=== PATIENT | male | born 1970 | race African-American/Black ===

== ENCOUNTER 2021-01-16 08:02 | Emergency (ER) | payer OTHER, SELFPAY ==
[2021-01-16 08:32] VITALS: BP 170/102; PULSE 74; RESP 16; TEMP 36.4; O2SAT 97; BMI 33.0
[2021-01-16 08:35] VITALS: BP 164/101
--- NOTE | 2021-01-16 08:43 | ED.BACK ---
HPI - Back Pain/Injury General Chief Complaint: Back Pain/Injury Stated Complaint: back pain Time Seen by Provider: 01/16/21 08:37 Source: patient Mode of arrival: ambulatory Limitations: no limitations History of Present Illness HPI Narrative: 50 y/o male with no significant medical history presents to the ER with 1 week of right upper back and shoulder pain. 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 His pain is located in his upper back and it feels like his muscles are all tensed up. He has been taking Advil with some brief improvement. She denies any chest pain, SOB, abd pain, N/V/D. No known specific injury or trauma. MD elicited complaint: back pain Onset (ago): week(s) (1) Timing: constant Severity: moderate Similar Symptoms Previously: No Quality: aching and spasming Location: right upper back Radiation: none Exacerbating factors: movement and deep breaths Relieving factors: none Associated symptoms: denies other symptoms Treatments prior to arrival: NSAIDS Work related injury: Yes Related Data Previous Rx's Medication Instructions Recorded cyclobenzaprine 10 mg tablet 10 mg PO TID PRN #14 tab 01/16/21 ibuprofen 600 mg tablet 600 mg PO Q8H PRN #20 tab NS 01/16/21 lidocaine 5 % topical patch 1 patch TOPICAL DAILY #15 ea 01/16/21 (Lidoderm) Allergies Allergy/AdvReac Type Severity Reaction Status Date / Time No Known Allergies Allergy Unverified 01/06/20 15:54 Review of Systems Review of Systems: Constitutional: No Fever, No Chills ENT/Mouth: No sore throat Cardiovascular: No Chest Pain, No SOB Respiratory: No Cough, No Sputum Gastrointestinal: No Nausea, No Vomiting, No abdominal Pain Musculoskeletal: + joint pain, + Myalgias Skin: No Skin Lesions, No rash Neuro: No Weakness, No Numbness Heme/Lymph: No Bruising, No Lymphadenopathy PMFSH Past Medical History Medical History (Updated 01/16/21 @ 08:45 by KRISTYN Aaron) No known health problems Social History Social History Advance Directives: No Advance Directives Information Provided: No Physical Exam Vital Signs: Vital Signs: Last Vital Signs Temp 97.6 F 01/16/21 08:32 Pulse 74 01/16/21 08:32 Resp 16 01/16/21 08:32 BP 164/101 H 01/16/21 08:35 Pulse Ox 97 01/16/21 08:32 Body Mass Index 33.0 Appearance: Alert. Oriented X3. No acute distress. HEENT: normal inspection CVS: Normal heart rate and rhythm. Pulses normal. Respiratory: No respiratory distress. Lungs CTAB Abd: no RUQ tenderness Skin: Skin warm and dry. Normal skin color. Normal skin turgor. No rashes. Extremities: normal right shoulder inspection, soft tissue tenderness and muscle spasm medial to scapula, normal passive ROM of the shoulder, pain with active abduction. normal strength and sensation Neuro: Oriented X 3. No motor deficit. No sensory deficit. Course Course Course Narrative: 50 y/o male presenting with right upper back and shoulder pain x1 week in the setting of driving a forklift. Exam and clinical presentation are consistent with muscle spasm, likely related to overuse, possible mild tendonitis. No chest pain. Will treat with NSAIDs and muscle relaxer. Rest and ice/heat. He will follow up with his PCP in 1 week or come back to the ER if symptoms worsen. He is stable for discharge home. Discharge Plan Discharge Clinical Impression: Thoracic back pain Qualifiers: Chronicity: acute Back pain laterality: right Qualified Code(s): M54.6 - Pain in thoracic spine Patient Disposition: Home, Self-Care Instructions: Back Pain (ED) Additional Instructions: Rest. No strenuous activity. Use ice several times per day for 20 minutes at a time for the next 48 hours and then change to heat. Take medications as prescribed to help with pain and discomfort. Follow up with your Primary Care Doctor this week. If your pain worsens or if you develop any other concerning symptoms call 911 or come back to the ER right away for evaluation. Prescriptions: New cyclobenzaprine 10 mg tablet 10 mg PO TID PRN (Reason: muscle spasm) Qty: 14 RF: 0 lidocaine [Lidoderm] 5 % adhesive patch,medicated 1 patch topical DAILY Qty: 15 RF: 0 ibuprofen 600 mg tablet 600 mg PO Q8H PRN (Reason: fever or pain) Qty: 20 RF: 0 Stand Alone Forms: Work/School Release
== END 2021-01-16 09:02 | disposition home or self-care (01) ==
PROVIDERS: Emergency Provider Emergency Medicine
DX: M54.6 Pain in thoracic spine (principal); M25.512 Pain in left shoulder; M25.511 Pain in right shoulder; Z79.899 Other long term (current) drug therapy
CPT/HCPCS: 99283

== ENCOUNTER 2021-11-30 19:22 | Emergency (ER) | payer OTHER, SELFPAY ==
[2021-11-30 20:50] VITALS: BP 145/101; PULSE 78; RESP 16; TEMP 36.8; O2SAT 99; BMI 30.3
--- NOTE | 2021-11-30 20:53 | ECG_ITS ---
Test Reason : dizziness Blood Pressure : / mmHG Vent. Rate : 069 BPM Atrial Rate : 069 BPM P-R Int : 188 ms QRS Dur : 104 ms QT Int : 394 ms P-R-T Axes : 015 -01 042 degrees QTc Int : 422 ms Normal sinus rhythm Normal ECG When compared with ECG of 20-AUG-2011 20:55, No significant change was found Referred By: Generic ED Physician Electronically Signed By:DESHAUN LIM
[2021-11-30 21:05] LABS: MANUAL DIFF FLAG NO
[2021-11-30 21:07] LABS: Basophils Percent Auto 0.3 % (0-2); Eosinophils Absolute Auto 0.2 X10*3/uL (0.0-0.4); Hematocrit 39.4 % (42.0-52.0); Hemoglobin 12.7 g/dl (14.0-18.0); Imm Gran Abs Auto 0.04 X10*3/uL (0.00-0.03); Imm Gran Pct Auto 0.4 % (0.0-0.4); Lymphocytes Absolute Auto 2.9 X10*3/uL (1.2-4.9); Mean Corpuscular HGB Conc 32.2 g/dl (31.0-36.0); Mean Corpuscular Hemoglobin 23.4 pg (27.0-33.0); Mean Corpuscular Volume 72.7 fL (80.0-98.0); Mean Platelet Volume 11.3 fL (9.4-12.4); Monocytes Absolute Auto 0.7 X10*3/uL (0.1-1.2); Monocytes Percent Auto 7.3 % (2-11); Neutrophils Absolute Auto 5.7 x10*3/uL (2.0-8.3); Platelet Count 240 X10*3/uL (160-400); Red Blood Count 5.42 X10*6/uL (4.60-5.80); Red Cell Distribution Width 14.6 % (11.0-16.0); White Blood Count 9.6 X10*3/uL (4.8-10.8)
[2021-11-30 21:23] LABS: COVID-19 Test Negative (Negative)
[2021-11-30 21:26] LABS: Troponin-I High Sensitivity < 3.5 ng/L (<3.5-35.0)
[2021-11-30 21:28] LABS: Alanine Aminotransferase 34 U/L (0-40); Albumin Level 4.5 g/dL (3.5-5.0); Alkaline Phosphatase 156 U/L (39-117); Anion Gap 17 (12-20); Aspartate Amino Transferase 23 U/L (5-37); Bilirubin Total 0.7 mg/dL (0.0-1.0); Blood Urea Nitrogen 13 mg/dL (9-16); Calcium 9.2 mg/dL (8.4-10.2); Carbon Dioxide 24 mmol/L (22-29); Chloride 106 mmol/L (96-108); Creatinine Clr Calc Pharmacy 116.6; Estimated Glomerular Filt Rate > 60; Glucose Random 89 mg/dL (60-115); Lipase 31 U/L (8-78); Potassium 3.8 mmol/L (3.3-5.1); Sodium 143 mmol/L (135-145); Total Protein 7.4 g/dL (6.5-8.0)
--- NOTE | 2021-12-01 00:06 | ED.NAVMDI ---
HPI - Nausea/Vomiting/Diarrhea General Chief complaint: Nausea/Vomiting/Diarrhea Stated complaint: nv, fever Time Seen by Provider: 12/01/21 00:00 Source: patient Mode of arrival: ambulatory Limitations: no limitations History of Present Illness HPI Narrative: Patient comes to the emergency room complaining of 2 days of nausea, vomiting, loose stools and subjective fever. Patient states that sometimes he feels a bit lightheaded, no syncopal episodes. Patient has chest pain or shortness of breath, complaining of occasional abdominal cramping. Patient has not taking any medication [id number]. Related Data Previous Rx's Medication Instructions Recorded cyclobenzaprine 10 mg tablet 10 mg PO TID PRN muscle spasm #14 01/16/21 tabs ibuprofen 600 mg tablet 600 mg PO Q8H PRN fever or pain 01/16/21 #20 tabs lidocaine 5 % topical patch 1 patch topical DAILY #15 ea 01/16/21 (Lidoderm) dicyclomine 10 mg capsule 10 mg PO TID PRN Abdominal 12/01/21 cramping #7 caps ondansetron 4 mg disintegrating 4 mg PO Q6H PRN nausea and 12/01/21 tablet vomiting #7 tabs Allergies Allergy/AdvReac Type Severity Reaction Status Date / Time No Known Allergies Allergy Unverified 01/06/20 15:54 Review of Systems Review of Systems: Constitutional : No Weight loss, complaining of subjective Fever, No Chills, No Night Sweats, No Fatigue, No Malaise ENT/Mouth : No Hearing loss, No Ear Pain, No Nasal Congestion, No Sinus Pain, No Hoarseness, No sore throat, No Rhinorrhea, No Swallowing Difficulty Eyes: No Eye Pain, No Swelling, No Redness, No Foreign Body, No Discharge, No Vision Changes Cardiovascular : No Chest Pain, No SOB, No Dyspnea on Exertion, No Orthopnea, No Edema, No Palpitations Respiratory : No Cough, No Sputum, No Wheezing, No Smoke Exposure, No Dyspnea Gastrointestinal : Complaining of nausea, vomiting, loose stools, no diarrhea. Occasional abdominal cramping Genitourinary : no irregular bleeding, No Dysuria, No Urinary Frequency, No Hematuria, No Urinary Incontinence, No Urgency, No Flank Pain, No Urinary Flow Changes, No Hesitancy Musculoskeletal : No joint pain, No Myalgias, No Joint Swelling Skin : No Skin Lesions, No rash Neuro : No Weakness, No Numbness, No Paresthesias, No Loss of Consciousness, No Dizziness, No Headache Psych : No Anxiety/Panic, No Depression, No SI/HI/AH/VH, No Social Issues, Heme/Lymph: No Bruising, No Bleeding,No Lymphadenopathy Endocrine : No Polyuria, No Polydipsia, No Temperature Intolerance [facility] Past Medical History Medical History (Updated 12/01/21 @ 00:09 by Hortensia Zarate MD) No known health problems Social History Social History Advance Directives: No Advance Directives Information Provided: Yes Physical Exam Vital Signs: Vital Signs: Last Vital Signs Temp 98.3 F 11/30/21 20:50 Pulse 77 12/01/21 00:48 Resp 16 11/30/21 20:50 BP 157/105 H 12/01/21 00:48 Pulse Ox 99 11/30/21 20:50 O2 Del Method 11/30/21 20:50 BMI result Body Mass Index 30.3 Const: Other: Appearance: Alert. Oriented X3. No acute distress. Well-appearing Eyes: Pupils equal, round and reactive to light. ENT: Pharynx normal. Neck: Normal inspection. Neck supple. No lymph nodes noted. No crepitus CVS: Normal heart rate and rhythm. Pulses normal. Normal S1 and S2 Respiratory: No respiratory distress. Breath sounds normal. No Wheezing. No rales Abdomen: Soft and nontender. No rigidity. No distention. Skin: Skin warm and dry. Normal skin color. Normal skin turgor. Extremities: No lower extremity edema. No Lacerations. No Rash Neuro: Oriented X 3. No motor deficit. No sensory deficit. Moving all extremities. No slurred speech. CN 2 through 12 grossly intact Psych: calm, cooperative, normal affect Course Course Course Narrative: Patient is receiving IV fluids, Zofran and dicyclomine. Orthostatic vitals pending. Patient tested negative for COVID-19. Troponin negative, EKG within normal limits. Orthostatic vitals were negative MDM - Nausea/Vomiting/Diarrhea Lab Data Result diagrams: 11/30/21 20:57 11/30/21 20:57 Labs: Lab Results 11/30/21 11/30/21 11/30/21 Range/Units 20:57 20:57 20:57 WBC 9.6 (4.8-10.8) X10*3/uL RBC 5.42 (4.60-5.80) X10*6/uL Hgb 12.7 L (14.0-18.0) g/dl Hct 39.4 L (42.0-52.0) % MCV 72.7 L (80.0-98.0) fL MCH 23.4 L (27.0-33.0) pg MCHC 32.2 (31.0-36.0) g/dl RDW 14.6 (11.0-16.0) % Plt Count 240 (160-400) X10*3/uL MPV 11.3 (9.4-12.4) fL Immature Gran % (Auto) 0.4 (0.0-0.4) % Neut % (Auto) 60.0 (45-73) % Lymph % (Auto) 30.0 (20-40) % [place] % (Auto) 7.3 (2-11) % Eos % (Auto) 2.0 (0-4) % Baso % (Auto) 0.3 (0-2) % Lymph # (Auto) 2.9 (1.2-4.9) X10*3/uL [place] # (Auto) 0.7 (0.1-1.2) X10*3/uL Eos # (Auto) 0.2 (0.0-0.4) X10*3/uL Baso # (Auto) 0.0 (0.0-0.2) X10*3/uL Abs Immat Gran (auto) 0.04 H (0.00-0.03) X10*3/uL Absolute Neuts (auto) 5.7 (2.0-8.3) x10*3/uL Absolute Nucleated RBC 0.000 (0.0-0.012) X10*3/uL Nucleated RBC % (auto) 0.0 (0.0-0.2) /100WBC Sodium 143 (135-145) mmol/L Potassium 3.8 (3.3-5.1) mmol/L Chloride 106 (96-108) mmol/L Carbon Dioxide 24 (22-29) mmol/L Anion Gap 17 (12-20) BUN 13 (9-16) mg/dL Creatinine 0.95 (0.5-1.4) mg/dL Estim Creat Clear Calc 116.6 Estimated GFR > 60 Random Glucose 89 (60-115) mg/dL Calcium 9.2 (8.4-10.2) mg/dL Total Bilirubin 0.7 (0.0-1.0) mg/dL AST 23 (5-37) U/L ALT 34 (0-40) U/L Alkaline Phosphatase 156 H (39-117) U/L Troponin I High Sens < 3.5 (<3.5-35.0) ng/L Total Protein 7.4 (6.5-8.0) g/dL Albumin 4.5 (3.5-5.0) g/dL Lipase 31 (8-78) U/L COVID-19 (IV[facility]N) (Negative) COVID-19 Clin Com 11/30/21 Range/Units 20:57 WBC (4.8-10.8) X10*3/uL RBC (4.60-5.80) X10*6/uL Hgb (14.0-18.0) g/dl Hct (42.0-52.0) % MCV (80.0-98.0) fL MCH (27.0-33.0) pg MCHC (31.0-36.0) g/dl RDW (11.0-16.0) % Plt Count (160-400) X10*3/uL MPV (9.4-12.4) fL Immature Gran % (Auto) (0.0-0.4) % Neut % (Auto) (45-73) % Lymph % (Auto) (20-40) % [place] % (Auto) (2-11) % Eos % (Auto) (0-4) % Baso % (Auto) (0-2) % Lymph # (Auto) (1.2-4.9) X10*3/uL [place] # (Auto) (0.1-1.2) X10*3/uL Eos # (Auto) (0.0-0.4) X10*3/uL Baso # (Auto) (0.0-0.2) X10*3/uL Abs Immat Gran (auto) (0.00-0.03) X10*3/uL Absolute Neuts (auto) (2.0-8.3) x10*3/uL Absolute Nucleated RBC (0.0-0.012) X10*3/uL Nucleated RBC % (auto) (0.0-0.2) /100WBC Sodium (135-145) mmol/L Potassium (3.3-5.1) mmol/L Chloride (96-108) mmol/L Carbon Dioxide (22-29) mmol/L Anion Gap (12-20) BUN (9-16) mg/dL Creatinine (0.5-1.4) mg/dL Estim Creat Clear Calc Estimated GFR Random Glucose (60-115) mg/dL Calcium (8.4-10.2) mg/dL Total Bilirubin (0.0-1.0) mg/dL AST (5-37) U/L ALT (0-40) U/L Alkaline Phosphatase (39-117) U/L Troponin I High Sens (<3.5-35.0) ng/L Total Protein (6.5-8.0) g/dL Albumin (3.5-5.0) g/dL Lipase (8-78) U/L COVID-19 (IV[facility]) Negative (Negative) COVID-19 Clin Com See Note Discharge Plan Discharge Clinical Impression: Nausea & vomiting, Abdominal cramping Patient Disposition: Home, Self-Care Instructions: Acute Nausea and Vomiting (ED) Additional Instructions: Please follow-up with your primary care physician tomorrow. If you have any worsening or new symptoms, please return to the emergency room or call 911 Prescriptions: New ondansetron 4 mg tablet,disintegrating 4 mg PO Q6H PRN (Reason: nausea and vomiting) Qty: 7 0RF dicyclomine 10 mg capsule 10 mg PO TID PRN (Reason: Abdominal cramping) Qty: 7 0RF No Action cyclobenzaprine 10 mg tablet 10 mg PO TID PRN (Reason: muscle spasm) Qty: 14 0RF lidocaine [Lidoderm] 5 % adhesive patch,medicated 1 patch topical DAILY Qty: 15 0RF Rx Instructions: leave on most painful area for up to 12 hrs ibuprofen 600 mg tablet 600 mg PO Q8H PRN (Reason: fever or pain) Qty: 20 0RF
[2021-12-01 00:45] VITALS: BP 150/102; PULSE 67
[2021-12-01 00:46] VITALS: BP 159/94; PULSE 68
[2021-12-01 00:48] VITALS: BP 157/105; PULSE 77
[2021-12-01] MEDS: 0.9 % Sodium Chloride 1,000 ML 999 ML IVCONT (00:55)
[2021-12-01] MEDS: Dicyclomine HCl 10 MG CAPSULE PO (01:00)
[2021-12-01] MEDS: ondansetron HCL 4 MG/2 ML VIAL IVPUSH (01:00)
[2021-12-01 02:00] VITALS: BP 140/92; PULSE 88; RESP 16; TEMP 36.7; O2SAT 99
== END 2021-12-01 02:01 | disposition home or self-care (01) ==
PROVIDERS: Emergency Provider Emergency Medicine
DX: R10.9 Unspecified abdominal pain (principal); R11.2 Nausea with vomiting, unspecified; Z20.822 Contact with and (suspected) exposure to COVID-19
CPT/HCPCS: 80053; 83690; 84484; 85025; 87635; 93005; 96374; 99284; 99285; J2405